=== PATIENT | male | born 1965 ===

== ENCOUNTER 2017-04-26 11:03 | Emergency (ER) | payer OTHER ==
--- NOTE | 2017-04-26 11:52 | RAD ---
INDICATION: Right wrist injury. TECHNIQUE: 3 views of the right wrist were obtained. FINDINGS: There is diffuse soft tissue swelling. There is an old healed fracture of the fifth metacarpal. No acute fracture is seen. Joint spaces appear maintained. IMPRESSION: SOFT TISSUE SWELLING, NO ACUTE FRACTURE IS SEEN. IF THE PATIENT'S SYMPTOMS PERSIST RECOMMEND FOLLOW-UP IMAGING.
--- NOTE | 2017-04-26 12:12 | UC ---
Hand/Wrist HPI - HPI Summary HPI Summary: complaint of right wrist pain fell forward onto his right wrist from standing position occurred yesterday constant non radiating aching apin worse with any movement nothing lessens the pain hasn't taken any medications for pain - History Of Current Complaint Hx Obtained From: Patient <Zayra Poe - Last Filed: 04/26/17 12:20> <Kay Barone - Last Filed: 04/26/17 12:54> - History Of Current Complaint Chief Complaint: UCUpperExtremity Stated Complaint: WRIST INJURY Time Seen by Provider: 04/26/17 12:03 - Allergies/Home Medications Allergies/Adverse Reactions: Allergies Allergy/AdvReac Type Severity Reaction Status Date / Time No Known Allergies Allergy Verified 04/26/17 11:09 Home Medications: Home Medications NK [No Home Medications Reported] 04/26/17 [History Confirmed 04/26/17] PMH/Surg Hx/FS Hx/Imm Hx Previously Healthy: Yes - Surgical History Surgical History: None - Family History Known Family History: Negative: Cardiac Disease, Hypertension, Diabetes - Social History Occupation: Employed Full-time Lives: With Family Alcohol Use: Occasionally Substance Use Type: None Smoking Status (MU): Never Smoked Tobacco <Zayra Poe - Last Filed: 04/26/17 12:20> Review of Systems Constitutional: Negative Skin: Negative Eyes: Negative ENT: Negative Respiratory: Negative Cardiovascular: Negative Gastrointestinal: Negative Genitourinary: Negative Motor: Negative Neurovascular: Negative Musculoskeletal: Other: - right wrist pain Neurological: Negative Psychological: Negative All Other Systems Reviewed And Are Negative: Yes <Zayra Poe - Last Filed: 04/26/17 12:20> Physical Exam Triage Information Reviewed: Yes Appearance: No Pain Distress, Well-Nourished Vital Signs: Initial Vital Signs Temp 98 F 04/26/17 11:10 Pulse 63 04/26/17 11:10 Resp 15 04/26/17 11:10 Pulse Ox 100 04/26/17 11:10 Vital Signs Reviewed: Yes Eyes: Positive: Conjunctiva Clear ENT: Positive: Pharynx normal, TMs normal Neck: Positive: No Lymphadenopathy Respiratory: Positive: Lungs clear, Normal breath sounds, No respiratory distress Cardiovascular: Positive: RRR, No Murmur, Pulses Normal Abdomen Description: Positive: Nontender, Soft Bowel Sounds: Positive: Present Musculoskeletal: Positive: Other: - RUE- No bony deformities, tenderness and edema in proximal end of 3rd and 4th metacarpal No anatomical snuff box tenderness; Full ROM in DIP, PIP, MCP, & carpal joints & with supination and pronation. Neurological: Positive: Alert Psychological Exam: Normal Skin Exam: Normal <Zayra Poe - Last Filed: 04/26/17 12:20> Vital Signs: Initial Vital Signs Temp 98 F 04/26/17 11:10 Pulse 63 04/26/17 11:10 Resp 15 04/26/17 11:10 Pulse Ox 100 04/26/17 11:10 <Kay Barone - Last Filed: 04/26/17 12:54> Hand/Wrist Course/Dx - Course Course Of Treatment: exam completed. no anatomical snuff box tenderness. thumb spica splint, RICE- if no improvement followup with ortho - Differential Dx/Diagnosis Differential Diagnosis/HQI/PQRI: Contusion, Fracture, Sprain, Strain Provider Diagnoses: right wrist contusion <Zayra Poe - Last Filed: 04/26/17 12:20> Discharge <Zayra Poe - Last Filed: 04/26/17 12:20> <Kay Barone - Last Filed: 04/26/17 12:54> - Discharge Plan Condition: Stable Disposition: HOME Patient Education Materials: Wrist Injury (ED), RICE Therapy (ED) Referrals: [facility] [Outside] No Primary Care Phys,NOPCP [Primary Care Provider] - Shanique Stack MD [Medical Doctor] - Additional Instructions: Increase fluids and rest Take acetaminophen or ibuprofen for pain Please review your discharge instructions. Wear wrist splint If your wrist pain doesn't steadily improve please call Dr Stack for further evaluation and treatment. If your symptoms do not improve please call your primary care provider or return to urgent care. Your blood pressure is pre-hypertensive reading. Please contact your primary care provider within 1 day -4 weeks for further evaluation Attestation Statement User Type: Provider - I was available for consult. This patient was seen by the GIANNA. The patient was not presented to, seen by, or examined by me. -Hill <Kay Barone - Last Filed: 04/26/17 12:54>
== END 2017-04-26 12:27 | disposition home or self-care (01) ==
LOC: UCEAST 11:03
DX: S60.211A Contusion of right wrist, initial encounter (principal); W18.30XA Fall on same level, unspecified, initial encounter; Y93.9 Activity, unspecified; Y92.9 Unspecified place or not applicable
CPT/HCPCS: 99202; G0463